=== PATIENT | female | born 1975 | race Two or more races ===

== ENCOUNTER 2021-03-07 05:23 | Day surgery (SDC) | payer OTHER ==
[2021-03-06 15:08] VITALS: BMI 22.8
[2021-03-07 10:00] VITALS: TEMP 97
[2021-03-07 11:55] VITALS: BP 113/75; PULSE 88
== END 2021-03-07 12:01 | disposition home or self-care (01) ==
LOC: JASU-SURG 05:23
PROVIDERS: ATTEND Obstetrics & Gynecology
PROC: 0UBC7ZX Excision of Cervix, Via Natural or Artificial Opening, Diagnostic (ICD-10-PCS; principal; 2021-03-07)
PROC: 0UBL0ZZ Excision of Vestibular Gland, Open Approach (ICD-10-PCS; 2021-03-07)
DX: D06.0 Carcinoma in situ of endocervix (principal); N75.0 Cyst of Bartholin's gland; R87.820 Cervical low risk human papillomavirus (HPV) DNA test positive
CPT/HCPCS: 81025; 88305-TC; 88307-TC; 94760

== ENCOUNTER 2022-03-21 01:28 | Observation (INO) | payer OTHER ==
[2022-03-21 01:35] VITALS: BMI 21.7
[2022-03-21] MEDS ORDERED: ONDANSETRON 4 MG/2 ML VIAL ONE (03:22)
[2022-03-21] MEDS ORDERED: SODIUM CHLORIDE 0.9% 500 ML INFUS.BAG IV ONE (03:24)
[2022-03-21] MEDS ORDERED: ONDANSETRON 4 MG/2 ML VIAL IVPUSH ONE (03:38)
[2022-03-21 03:50] LABS: BASO % 0.4 % (0-2.0); EOS % 0.8 % (0-4.5); HEMATOCRIT 22.9 % (32.4-45.2); MCHC 27.8 g/dl (32.0-36.0); MEAN CELL VOLUME 60.2 fl (80-96); MEAN PLT VOLUME 8.4 fl (7.5-11.1); MONO % 8.4 % (3.8-10.2); NEUT % 71.4 % (42.8-82.8); PLATELET COUNT 391 10^3/uL (134-434); RDW 20.1 % (11.6-15.6)
[2022-03-21 04:02] LABS: MCH 16.7 pg (25.7-33.7)
[2022-03-21 04:03] LABS: HEMOGLOBIN 6.4 GM/dL (10.7-15.3)
[2022-03-21 04:04] LABS: ALBUMIN 3.5 g/dl (3.4-5.0); BLOOD UREA NITROGEN 12.2 mg/dL (7-18); CALCIUM 8.6 mg/dL (8.5-10.1)
[2022-03-21 04:06] LABS: CREATININE 0.7 mg/dL (0.55-1.3)
[2022-03-21 04:08] LABS: BILIRUBIN,TOTAL 0.5 mg/dL (0.2-1); TOT PROT 7.2 g/dl (6.4-8.2)
[2022-03-21 05:28] LABS: INR 1.21 (0.83-1.09); PROTHROMBIN TIME (PATIENT) 13.9 SEC (9.7-13.0)
[2022-03-21 05:32] LABS: ACTIVATED PTT 24.3 SECONDS (25.2-36.5)
[2022-03-21 15:09] VITALS: RESP 20
[2022-03-21 16:59] LABS: RETICULOCYTES 2.22 % (0.5-1.5)
[2022-03-21 17:26] VITALS: BP 125/76; PULSE 80; TEMP 97.6
[2022-03-21 17:53] LABS: HEMATOCRIT 29.7 % (32.4-45.2); HEMOGLOBIN 8.7 GM/dL (10.7-15.3); MCHC 29.5 g/dl (32.0-36.0); MEAN CELL VOLUME 67.4 fl (80-96); MEAN PLT VOLUME 7.6 fl (7.5-11.1); PLATELET COUNT 335 10^3/uL (134-434); RBC 4.41 M/mm3 (3.60-5.2); RDW 26.6 % (11.6-15.6); WHITE BLOOD COUNT 4.9 K/mm3 (4.0-10.0)
[2022-03-21 18:10] LABS: MCH 19.9 pg (25.7-33.7)
== END 2022-03-21 19:45 | disposition left against medical advice (07) ==
LOC: JER 01:28 → JERBED 04:56
PROVIDERS: ADMIT Internal Medicine; ATTEND Internal Medicine
PROC: 30233N1 Transfusion of Nonautologous Red Blood Cells into Peripheral Vein, Percutaneous Approach (ICD-10-PCS; principal; 2022-03-21)
PROC: 3E033GC Introduction of Other Therapeutic Substance into Peripheral Vein, Percutaneous Approach (ICD-10-PCS; 2022-03-21)
PROC: 3E0337Z Introduction of Electrolytic and Water Balance Substance into Peripheral Vein, Percutaneous Approach (ICD-10-PCS; 2022-03-21)
DX: J09.X2 Influenza due to identified novel influenza A virus with other respiratory manifestations (principal); R79.89 Other specified abnormal findings of blood chemistry; D64.9 Anemia, unspecified; R06.02 Shortness of breath
CPT/HCPCS: 0241U-QW; 36415; 36430; 71275-TC; 80053; 82728; 83540; 83550; 84703; 85025; 85027; 85045; 85610; 85730; 86850; 86900; 86901; 86922; 93005; 93010; 96374; 99285-25; G0378; P9058; Q9967

== ENCOUNTER 2022-08-04 04:06 | Day surgery (SDC) | payer OTHER ==
[2022-07-31 13:27] VITALS: BMI 23.0
[2022-08-04] MEDS ORDERED: IBUPROFEN 400 MG TABLET (FP) PO PRN (07:02)
[2022-08-04] MEDS ORDERED: ACETAMINOPHEN 325 MG TABLET (FP) PO PRN (07:02)
[2022-08-04] MEDS ORDERED: ONDANSETRON 4 MG/2 ML VIAL IVPUSH PRN (08:44)
[2022-08-04] MEDS ORDERED: oxyCODONE HCL 5 MG TABLET PO PRN (08:44)
[2022-08-04] MEDS ORDERED: LACTATED RINGERS SOLUTION 1,000 ML IV SCH (08:45)
[2022-08-04] MEDS ORDERED: MIDAZOLAM HCL 2 MG/2 ML SINGLE DOSE VIAL ONE (08:54)
[2022-08-04] MEDS ORDERED: PROPOFOL 20 ML ONE (08:54)
[2022-08-04] MEDS ORDERED: DEXAMETHASONE SOD PHOSPHATE 4 MG/1 ML VIAL ONE (09:24)
[2022-08-04] MEDS ORDERED: ONDANSETRON 4 MG/2 ML VIAL ONE (09:24)
[2022-08-04] MEDS ORDERED: ACETAMINOPHEN 1000 MG/100 ML BAG IVPB ONE (10:03)
[2022-08-04] MEDS ORDERED: ACETAMINOPHEN INJECTION 100 ML IVPB ONE (11:14)
[2022-08-04 12:42] VITALS: RESP 20
[2022-08-04 14:11] VITALS: BP 136/88; PULSE 74; TEMP 97
== END 2022-08-04 13:40 | disposition home or self-care (01) ==
LOC: JASU-SURG 04:06
PROVIDERS: ATTEND Obstetrics & Gynecology
PROC: 0UB98ZZ Excision of Uterus, Via Natural or Artificial Opening Endoscopic (ICD-10-PCS; principal; 2022-08-04 08:30)
DX: N92.0 Excessive and frequent menstruation with regular cycle (principal); D25.0 Submucous leiomyoma of uterus
CPT/HCPCS: 88305-TC; 94760

== ENCOUNTER 2025-01-11 06:16 | Day surgery (SDC) | payer OTHER ==
[2025-01-09 11:44] VITALS: BMI 22.1
[2025-01-11] MEDS ORDERED: GABAPENTIN 300 MG CAPSULE ONE (06:54)
[2025-01-11] MEDS: GABAPENTIN 300 MG CAPSULE PO ONE (07:05)
[2025-01-11] MEDS ORDERED: ROCURONIUM BROMIDE 50 MG/5 ML SYRINGE ONE (07:45)
[2025-01-11] MEDS ORDERED: MIDAZOLAM HCL 2 MG/2 ML SINGLE DOSE VIAL ONE (07:45)
[2025-01-11] MEDS ORDERED: SUCCINYLCHOLINE CHLORIDE 200 MG/10 ML SYRINGE ONE (07:45)
[2025-01-11] MEDS ORDERED: PROPOFOL 20 ML ONE ×3 (07:45→09:29)
[2025-01-11] MEDS: LIDOCAINE 1%/EPI 1:100000 (20 ML MULTI DOSE VIAL) IJ ONE ×2 (08:35)
[2025-01-11] MEDS ORDERED: SUGAMMADEX SODIUM 200 MG/2 ML VIAL ONE (10:34)
[2025-01-11] MEDS: LACTATED RINGERS SOLUTION 1,000 ML IV SCH (11:30)
[2025-01-11] MEDS: KETOROLAC TROMETHAMINE 30 MG/1 ML VIAL IVPUSH ONE ×2 (11:35→14:06)
[2025-01-11] MEDS: ACETAMINOPHEN 1000 MG/100 ML BAG IVPB ONE ×2 (11:37→14:01)
[2025-01-11] MEDS ORDERED: ACETAMINOPHEN INJECTION 100 ML ONE (13:52)
[2025-01-11] MEDS ORDERED: KETOROLAC TROMETHAMINE 30 MG/1 ML VIAL ONE (13:53)
[2025-01-11 15:48] VITALS: RESP 14
[2025-01-11] MEDS ORDERED: ONDANSETRON 4 MG/2 ML VIAL ONE (15:49)
[2025-01-11] MEDS: ONDANSETRON 4 MG/2 ML VIAL IVPUSH PRN (15:51)
[2025-01-11 17:50] VITALS: BP 118/72; PULSE 69; TEMP 97.5
== END 2025-01-11 18:01 | disposition home or self-care (01) ==
LOC: JASU-SURG 06:16
PROVIDERS: ATTEND Specialist
PROC: 0JQC0ZZ Repair Pelvic Region Subcutaneous Tissue and Fascia, Open Approach (ICD-10-PCS; 2025-01-11)
PROC: 0USG0ZZ Reposition Vagina, Open Approach (ICD-10-PCS; 2025-01-11)
PROC: 0UT9FZZ Resection of Uterus, Via Natural or Artificial Opening With Percutaneous Endoscopic Assistance (ICD-10-PCS; principal; 2025-01-11 08:00)
PROC: 0UT7FZZ Resection of Bilateral Fallopian Tubes, Via Natural or Artificial Opening With Percutaneous Endoscopic Assistance (ICD-10-PCS; 2025-01-11 08:00)
DX: N92.1 Excessive and frequent menstruation with irregular cycle (principal); D25.9 Leiomyoma of uterus, unspecified; N80.03 Adenomyosis of the uterus; N99.3 Prolapse of vaginal vault after hysterectomy
CPT/HCPCS: 81025; 86850; 86900; 86901; 94760